=== PATIENT | male | born 1975 | race Caucasian/White ===

== ENCOUNTER 2018-01-15 00:56 | Emergency (ER) | payer SELFPAY ==
[~2018-01-15] VITALS: Ht 180.3 cm; Wt 115.7 kg
[~2018-01-15 00:56] MED LIST: CYCL10TA2 PO; HYDR-971 PO
--- NOTE | 2018-01-15 01:22 | PHYS DOC ---
Past Medical History Past Medical History: GERD, Hypertension Past Surgical History: Other Additional Past Surgical Histo: L5 back surgery Smoking: Quit Less Than 1 Year Alcohol Use: None Drug Use: None Adult General Chief Complaint Chief Complaint: CHEST PAIN HPI HPI Patient is a 42 year old MALE who presents with chest pain. This started approximately 10:00 tonight. No radiation. No nausea, no diaphoresis. Patient was recently, approximately a month ago, diagnosed with hypertension at [facility] and started on an unknown blood pressure medication. Patient noted that his blood pressure was elevated tonight. And when the pain did not go away after proximally 4 hours his talked him into coming to the emergency department. Reports that he feels like his heart is racing when he walks. There is a respirophasic component to the discomfort. Describes it as sharp. As he is laying in the ER bed he denies any pain currently.[] Review of Systems Review of Systems Constitutional: Denies fever or chills [] Eyes: Denies change in visual acuity, redness, or eye pain [] HENT: Denies nasal congestion or sore throat [] Respiratory: Denies cough or shortness of breath [] Cardiovascular: No additional information not addressed in HPI [] GI: Denies abdominal pain, nausea, vomiting, bloody stools or diarrhea [] : Denies dysuria or hematuria [] Musculoskeletal: Denies back pain or joint pain [] Integument: Denies rash or skin lesions [] Neurologic: Denies headache, focal weakness or sensory changes [] Endocrine: Denies polyuria or polydipsia [] All other systems were reviewed and found to be within normal limits, except as documented in this note. Current Medications Current Medications Current Medications Medications (Trade) Dose Ordered Sig/Jorge Start Time Stop Time Status Last Admin Dose Admin Aspirin (Children'S Aspirin) 324 mg 1X ONCE 01/15/18 01:30 01/15/18 01:31 DC 01/15/18 01:25 324 MG Ketorolac Tromethamine (Toradol 15mg Vial) 15 mg 1X ONCE 01/15/18 02:00 01/15/18 02:01 DC 01/15/18 01:53 15 MG Nitroglycerin (Nitrostat) 0.4 mg PRN Q5MIN PRN 01/15/18 01:15 01/15/18 02:01 0.4 MG Allergies Allergies Allergies Coded Allergies Type Severity Reaction Last Updated Verified No Known Drug Allergies 03/03/13 No Physical Exam Physical Exam Constitutional: Well developed, well nourished, no acute distress, non-toxic appearance. [] HENT: Normocephalic, atraumatic, bilateral external ears normal, oropharynx moist, no oral exudates, nose normal. [] Eyes: PERRLA, EOMI, conjunctiva normal, no discharge. [] Neck: Normal range of motion, no tenderness, supple, no stridor. [] Cardiovascular:Heart rate regular rhythm, no murmur [] Lungs & Thorax: Bilateral breath sounds clear to auscultation [] Abdomen: Bowel sounds normal, soft, no tenderness, no masses, no pulsatile masses. [] Skin: Warm, dry, no erythema, no rash. [] Back: No tenderness, no CVA tenderness. [] Extremities: No tenderness, no cyanosis, no clubbing, ROM intact, no edema. [] Neurologic: Alert and oriented X 3, normal motor function, normal sensory function, no focal deficits noted. [] Psychologic: Affect normal, judgement normal, mood normal. [] Current Patient Data Vital Signs Vital Signs Date Time Temp Pulse Resp B/P (MAP) Pulse Ox O2 Delivery O2 Flow Rate FiO2 01/15/18 02:06 59 16 114/70 (85) 99 Room Air 01/15/18 00:57 97.6 97.6 Lab Values Laboratory Tests Test 01/15/18 02:00 White Blood Count 14.5 x10^3/uL (4.0-11.0) H Red Blood Count 4.62 x10^6/uL (4.30-5.70) Hemoglobin 14.9 g/dL (13.0-17.5) Hematocrit 42.5 % (39.0-53.0) Mean Corpuscular Volume 92 fL (79-100) Mean Corpuscular Hemoglobin 32 pg (25-35) Mean Corpuscular Hemoglobin Concent 35 g/dL (31-37) Red Cell Distribution Width 13.4 % (11.5-14.5) Platelet Count 313 x10^3/uL (140-400) Neutrophils (%) (Auto) 61 % (31-73) Lymphocytes (%) (Auto) 31 % (24-48) Monocytes (%) (Auto) 6 % (0-9) Eosinophils (%) (Auto) 1 % (0-3) Basophils (%) (Auto) 1 % (0-3) Neutrophils # (Auto) 8.8 x10^3uL (1.8-7.7) H Lymphocytes # (Auto) 4.6 x10^3/uL (1.0-4.8) Monocytes # (Auto) 0.8 x10^3/uL (0.0-1.1) Eosinophils # (Auto) 0.1 x10^3/uL (0.0-0.7) Basophils # (Auto) 0.2 x10^3/uL (0.0-0.2) Prothrombin Time 12.9 SEC (11.7-14.0) Prothrombin Time INR 1.0 (0.8-1.1) D-Dimer (Maryann) 0.31 ug/mlFEU (0.00-0.50) Sodium Level 144 mmol/L (136-145) Potassium Level 3.5 mmol/L (3.5-5.1) Chloride Level 106 mmol/L (98-107) Carbon Dioxide Level 21 mmol/L (21-32) Anion Gap 17 (6-14) H Blood Urea Nitrogen 12 mg/dL (8-26) Creatinine 1.1 mg/dL (0.7-1.3) Estimated GFR (Cockcroft-Gault) 73.1 BUN/Creatinine Ratio 11 (6-20) Glucose Level 117 mg/dL (70-99) H Calcium Level 9.0 mg/dL (8.5-10.1) Magnesium Level 1.8 mg/dL (1.8-2.4) Total Bilirubin 0.4 mg/dL (0.2-1.0) Aspartate Amino Transferase (AST) 14 U/L (15-37) L Alanine Aminotransferase (ALT) 29 U/L (16-63) Alkaline Phosphatase 65 U/L (46-116) Troponin I Quantitative < 0.017 ng/mL (0.000-0.055) Total Protein 7.6 g/dL (6.4-8.2) Albumin 3.7 g/dL (3.4-5.0) Albumin/Globulin Ratio 0.9 (1.0-1.7) L Lipase 172 U/L (73-393) Laboratory Tests 01/15/18 02:00 Laboratory Tests 01/15/18 02:00 EKG EKG EKG shows a normal sinus rhythm, no ST elevation, normal axis, normal QTC[] Radiology/Procedures Radiology/Procedures Chest x-ray did not show any acute features[] Course & Med Decision Making Course & Med Decision Making Pertinent Labs and Imaging studies reviewed. (See chart for details) Medical decision making: Patient had a heart score of 1 due to his history of high blood pressure. Second set of cardiac enzymes are being obtained because his first set were negative. There is no evidence of end organ dysfunction given his significantly elevated blood pressure when he arrived. ED course: Patient arrived, was placed in bed, in tolerate exam well. His elevated blood pressure was noted and addressed with both nitroglycerin as well as pain medication. His blood pressure significantly improved including after the expected duration of nitroglycerin had worn off. Patient continues to be pain-free.[] Dragon Disclaimer Dragon Disclaimer This electronic medical record was generated, in whole or in part, using a voice recognition dictation system. Departure Departure Impression: Primary Impression: Chest pain Additional Impression: Hypertension Disposition: 01 HOME, SELF-CARE Condition: GOOD Referrals: NON,STAFF (PCP) Patient Instructions: Chest Pain (Nonspecific), Hypertension Additional Instructions: Take your blood pressure medicine as prescribed. Follow-up with your primary care physician within 2 days. Return to the ER if worsening pain, difficulty breathing, or any other concerns. Problem Qualifiers Primary Impression: Chest pain Chest pain type: unspecified Qualified Codes: R07.9 - Chest pain, unspecified Additional Impression: Hypertension Hypertension type: unspecified Qualified Codes: I10 - Essential (primary) hypertension JANE LONDONO DO Jan 15, 2018 01:22
[2018-01-15] MEDS: NITROGLYCERIN SUBLINGUAL 0.4 MG BOTTLE OF 25. SL PRN ×3 (01:24→02:01)
[2018-01-15] MEDS ORDERED: ASPIRIN CHEWABLE 81 MG TABLET. PO ONE (01:30)
--- NOTE | 2018-01-15 01:47 | EKG ---
[facility] [address] [place] [address] Test Date: 2018-01-15 Test Time: 01:04:25 Pat Name: SANJAY AUSTIN Department: Room: Gender: M [employer] Judge: : 1975 Requested By: JANE LONDONO Order Number: [id number] Reading MD: Measurements Intervals [place] Rate: 56 P: -25 CO: 176 QRS: 33 QRSD: 88 T: 18 QT: 414 QTc: 402 Interpretive Statements SINUS RHYTHM NO SPECIFIC ECG ABNORMALITIES RI6.01 No previous ECG available for comparison
[2018-01-15] MEDS ORDERED: KETOROLAC 15 MG/ML VIAL. IV ONE (02:00)
[2018-01-15 02:09] LABS: BASO # 0.2 x10^3/uL (0.0-0.2); BASO % 1 % (0-3); EOS # 0.1 x10^3/uL (0.0-0.7); EOS % 1 % (0-3); HEMATOCRIT 42.5 % (39.0-53.0); HEMOGLOBIN 14.9 g/dL (13.0-17.5); LYMPH # 4.6 x10^3/uL (1.0-4.8); LYMPH % 31 % (24-48); MEAN CORPUSCULAR HEMOGLOBIN 32 pg (25-35); MEAN CORPUSCULAR HGB CONC 35 g/dL (31-37); MEAN CORPUSCULAR VOLUME 92 fL (79-100); MONO # 0.8 x10^3/uL (0.0-1.1); MONO % 6 % (0-9); NEUT # 8.8 x10^3uL (1.8-7.7); NEUT % 61 % (31-73); PLATELET COUNT 313 x10^3/uL (140-400); RED BLOOD COUNT 4.62 x10^6/uL (4.30-5.70); RED CELL DISTRIBUTION WIDTH 13.4 % (11.5-14.5); WHITE BLOOD COUNT 14.5 x10^3/uL (4.0-11.0)
[2018-01-15 02:18] LABS: CREATININE 1.1 mg/dL (0.7-1.3); GFR 73.1; POTASSIUM 3.5 mmol/L (3.5-5.1)
[2018-01-15 02:19] LABS: PROTHROMBIN TIME PATIENT 12.9 SEC (11.7-14.0)
[2018-01-15 02:21] LABS: D-DIMER 0.31 ug/mlFEU (0.00-0.50)
[2018-01-15 02:29] LABS: ALBUMIN 3.7 g/dL (3.4-5.0); ALBUMIN/GLOBULIN RATIO 0.9 (1.0-1.7); MAGNESIUM 1.8 mg/dL (1.8-2.4); TOTAL BILIRUBIN 0.4 mg/dL (0.2-1.0); TOTAL PROTEIN 7.6 g/dL (6.4-8.2)
--- NOTE | 2018-01-15 04:42 | RAD ---
PORTABLE CHEST 1V Clinical Indication: chest pain Comparison: None. Findings: The cardiomediastinal silhouette is normal. Lungs are clear. There is no pneumothorax. No pleural effusion is appreciated. No acute bone abnormality. IMPRESSION: No acute cardiopulmonary process. Electronically signed by: Rohan Peterson MD (01/15/2018 4:39 AM) [facility]
[2018-01-15 06:06] VITALS: BP 185/98
== END 2018-01-15 06:29 | disposition home or self-care (01) ==
LOC: ER 00:56
DX: I10 Essential (primary) hypertension (principal); R07.89 Other chest pain; K21.9 Gastro-esophageal reflux disease without esophagitis; Z87.891 Personal history of nicotine dependence
CPT/HCPCS: 36415; 71045; 80053; 83690; 83735; 84484; 85025; 85379; 85610; 93005; 96374; 99285; J1885

== ENCOUNTER 2019-01-01 17:40 | Emergency (ER) | payer SELFPAY ==
[~2019-01-01] VITALS: Ht 172.7 cm; Wt 117.9 kg
[~2019-01-01 17:40] MED LIST changes: +HYDR-3164 PO; -HYDR-971 PO
[2019-01-01] MEDS ORDERED: IV NORMAL SALINE 1000ML BAG 1,000 ML IV ONE (18:15)
[2019-01-01 18:31] LABS: BASO # 0.1 x10^3/uL (0.0-0.2); BASO % 1 % (0-3); EOS # 0.1 x10^3/uL (0.0-0.7); EOS % 0 % (0-3); HEMATOCRIT 45.7 % (39.0-53.0); HEMOGLOBIN 15.5 g/dL (13.0-17.5); LYMPH % 20 % (24-48); MEAN CORPUSCULAR HEMOGLOBIN 32 pg (25-35); MEAN CORPUSCULAR HGB CONC 34 g/dL (31-37); MEAN CORPUSCULAR VOLUME 94 fL (79-100); MONO # 0.7 x10^3/uL (0.0-1.1); MONO % 5 % (0-9); NEUT # 10.9 x10^3/uL (1.8-7.7); NEUT % 74 % (31-73); PLATELET COUNT 293 x10^3/uL (140-400); RED BLOOD COUNT 4.89 x10^6/uL (4.30-5.70); RED CELL DISTRIBUTION WIDTH 13.3 % (11.5-14.5); WHITE BLOOD COUNT 14.7 x10^3/uL (4.0-11.0)
[2019-01-01 18:47] LABS: CALCIUM 8.3 mg/dL (8.5-10.1); CREATININE 1.3 mg/dL (0.7-1.3); POTASSIUM 3.8 mmol/L (3.5-5.1)
[2019-01-01 18:50] LABS: ACETAMIN < 2.0 mcg/ml (10-30); ETHANOL < 10 mg/dL (0-10); SALIC < 2.8 mg/dL (2.8-20.0)
[2019-01-01 18:51] LABS: ALBUMIN 3.8 g/dL (3.4-5.0); ALBUMIN/GLOBULIN RATIO 1.1 (1.0-1.7); MAGNESIUM 1.9 mg/dL (1.8-2.4); TOTAL BILIRUBIN 0.8 mg/dL (0.2-1.0); TOTAL PROTEIN 7.3 g/dL (6.4-8.2)
[2019-01-01 19:46] LABS: BILIRUBIN,URINE NEGATIVE (NEG); CLARITY,URINE CLEAR; COLOR,URINE YELLOW; NITRITE,URINE NEGATIVE (NEG); PROTEIN,URINE 30 mg/dL (NEG-TRACE); UROBILINOGEN,URINE 0.2 mg/dL (0.2 mg/dL)
[2019-01-01 19:52] LABS: AMORPHOUS SEDIMENT,UR PRESENT /HPF; BACTERIA,URINE 0 /HPF (0-FEW); HYALINE CASTS, URINE FEW /HPF; RBC,URINE 0 /HPF (0-2); WBC,URINE OCC /HPF (0-4)
[2019-01-01 19:54] LABS: BARBITURATES NEG (NEG); BENZODIAZEPINES POS (NEG); CANNABINOIDS POS (NEG); COCAINE NEG (NEG); METHADONE NEG (NEG); OPIATES POS (NEG); PHENCYCLIDINE NEG (NEG)
[2019-01-01 20:00] LABS: AMPHETAMINE/METHAMPHETAMINE NEG (NEG)
[2019-01-01 20:18] VITALS: BP 180/103
--- NOTE | 2019-01-01 20:18 | PHYS DOC ---
Past Medical History Past Medical History: Anxiety, GERD, Hypertension Additional Past Medical Histor: chronic back pain (MAUREEN LINDER APRN) Past Surgical History: Other Additional Past Surgical Histo: L5 back surgery (MAUREEN LINDER APRN) Alcohol Use: None Drug Use: None (MAUREEN LINDER APRN) Adult General Chief Complaint Chief Complaint: OVERDOSE HPI HPI Patient is a 43 year old male with history of anxiety, acid reflex, chronic back pain, who presents to the ED today to be evaluated for accidental overdose. Patient reports accidentally taking 2 tablets of 7.5 mg/325 of hydrocodone at 1600 for his chronic back pain and 2 tablets of 1 mg of Ativan at 1500. He states he usually takes 1 Xanax but he doesn't know what made him take 2. reports he found patient on the couch unresponsive laying on his face. EMS was called. Patient was noted to have O2 saturations at 30% and was snoring. Nasal trumpet was inserted to his right nasal cavity by EMS, he was given 1 mg of Narcan. He became responsive. Was brought to the ED. He is currently awake alert and oriented though sleepy he is able to answer questions. Patient denies any larson icidal or homicidal ideations (MAUREEN LINDER APRN) Review of Systems Review of Systems Constitutional: Denies fever or chills [] Eyes: Denies change in visual acuity, redness, or eye pain [] HENT: Denies nasal congestion or sore throat [] Respiratory: Denies cough or shortness of breath [] Cardiovascular: No additional information not addressed in HPI [] GI: Denies abdominal pain, nausea, vomiting, bloody stools or diarrhea [] : Denies dysuria or hematuria [] Musculoskeletal: Denies back pain or joint pain [] Integument: Denies rash or skin lesions [] Neurologic: Denies headache, focal weakness or sensory changes [] Endocrine: Reports unintentional drug overdose All other systems were reviewed and found to be within normal limits, except as documented in this note. (MAUREEN LINDER APRN) Current Medications Current Medications Current Medications Medications (Trade) Dose Ordered Sig/Jorge Start Time Stop Time Status Last Admin Dose Admin Sodium Chloride 1,000 ml @ 1,000 mls/hr 1X ONCE 01/01/19 18:15 01/01/19 19:14 DC 01/01/19 18:21 1,000 MLS/HR (WANDA ARELLANO DO) Allergies Allergies Allergies Coded Allergies Type Severity Reaction Last Updated Verified No Known Drug Allergies 03/03/13 No (WANDA ARELLANO DO) Physical Exam Physical Exam Constitutional: Well developed, well nourished, no acute distress, non-toxic appearance. [] HENT: Normocephalic, atraumatic, bilateral external ears normal, oropharynx moist, no oral exudates, nose normal. [] Eyes: PERRLA, EOMI, conjunctiva normal, no discharge. [] Neck: Normal range of motion, no tenderness, supple, no stridor. [] Cardiovascular:Heart rate regular rhythm, no murmur [] Lungs & Thorax: Bilateral breath sounds clear to auscultation [] Abdomen: Bowel sounds normal, soft, no tenderness, no masses, no pulsatile masses. [] Skin: Warm, dry, no erythema, no rash. [] Back: No tenderness, no CVA tenderness. [] Extremities: No tenderness, no cyanosis, no clubbing, ROM intact, no edema. [] Neurologic: Alert and oriented X 3, normal motor function, normal sensory function, no focal deficits noted. [] Psychologic: flat affect, appears lethargic but arouse able and able to answer questions (MAUREEN LINDER APRN) Current Patient Data Vital Signs Vital Signs Date Time Temp Pulse Resp B/P (MAP) Pulse Ox O2 Delivery O2 Flow Rate FiO2 01/01/19 20:18 118 20 180/103 (128) 96 Room Air 01/01/19 19:58 2.0 01/01/19 17:46 97.5 97.5 (WANDA ARELLANO DO) Lab Values Laboratory Tests Test 01/01/19 17:44 01/01/19 19:35 White Blood Count 14.7 x10^3/uL (4.0-11.0) H Red Blood Count 4.89 x10^6/uL (4.30-5.70) Hemoglobin 15.5 g/dL (13.0-17.5) Hematocrit 45.7 % (39.0-53.0) Mean Corpuscular Volume 94 fL (79-100) Mean Corpuscular Hemoglobin 32 pg (25-35) Mean Corpuscular Hemoglobin Concent 34 g/dL (31-37) Red Cell Distribution Width 13.3 % (11.5-14.5) Platelet Count 293 x10^3/uL (140-400) Neutrophils (%) (Auto) 74 % (31-73) H Lymphocytes (%) (Auto) 20 % (24-48) L Monocytes (%) (Auto) 5 % (0-9) Eosinophils (%) (Auto) 0 % (0-3) Basophils (%) (Auto) 1 % (0-3) Neutrophils # (Auto) 10.9 x10^3/uL (1.8-7.7) H Lymphocytes # (Auto) 3.0 x10^3/uL (1.0-4.8) Monocytes # (Auto) 0.7 x10^3/uL (0.0-1.1) Eosinophils # (Auto) 0.1 x10^3/uL (0.0-0.7) Basophils # (Auto) 0.1 x10^3/uL (0.0-0.2) Sodium Level 144 mmol/L (136-145) Potassium Level 3.8 mmol/L (3.5-5.1) Chloride Level 107 mmol/L (98-107) Carbon Dioxide Level 24 mmol/L (21-32) Anion Gap 13 (6-14) Blood Urea Nitrogen 10 mg/dL (8-26) Creatinine 1.3 mg/dL (0.7-1.3) Estimated GFR (Cockcroft-Gault) 60.0 BUN/Creatinine Ratio 8 (6-20) Glucose Level 203 mg/dL (70-99) H Calcium Level 8.3 mg/dL (8.5-10.1) L Magnesium Level 1.9 mg/dL (1.8-2.4) Total Bilirubin 0.8 mg/dL (0.2-1.0) Aspartate Amino Transferase (AST) 27 U/L (15-37) Alanine Aminotransferase (ALT) 35 U/L (16-63) Alkaline Phosphatase 67 U/L (46-116) Total Protein 7.3 g/dL (6.4-8.2) Albumin 3.8 g/dL (3.4-5.0) Albumin/Globulin Ratio 1.1 (1.0-1.7) Salicylates Level < 2.8 mg/dL (2.8-20.0) L Salicylate Last Dose Date Unknown Salicylate Last Dose Time Unknown Acetaminophen Level < 2.0 mcg/ml (10-30) L Acetaminophen Last Dose Date Unknown Acetaminophen Last Dose Time Unknown Ethyl Alcohol Level < 10 mg/dL (0-10) Urine Collection Type U cath Urine Color Yellow Urine Clarity Clear Urine pH 5.0 Urine Specific [place] 1.025 Urine Protein 30 mg/dL (NEG-TRACE) Urine Glucose (UA) Negative mg/dL (NEG) Urine Ketones (Stick) Negative mg/dL (NEG) Urine Blood Negative (NEG) Urine Nitrite Negative (NEG) Urine Bilirubin Negative (NEG) Urine Urobilinogen Dipstick 0.2 mg/dL (0.2 mg/dL) Urine Leukocyte Esterase Negative (NEG) Urine RBC 0 /HPF (0-2) Urine WBC Occ /HPF (0-4) Urine Amorphous Sediment Present /HPF Urine Bacteria 0 /HPF (0-FEW) Urine Hyaline Casts Few /HPF Urine Mucus Marked /LPF Urine Opiates Screen Pos (NEG) Urine Methadone Screen Neg (NEG) Urine Barbiturates Neg (NEG) Urine Phencyclidine Screen Neg (NEG) Urine Amphetamine/Methamphetamine Neg (NEG) Urine Benzodiazepines Screen Pos (NEG) Urine Cocaine Screen Neg (NEG) Urine Cannabinoids Screen Pos (NEG) Urine Ethyl Alcohol Neg (NEG) Laboratory Tests 01/01/19 17:44 Laboratory Tests 01/01/19 17:44 (WANDA ARELLANO DO) EKG EKG [] (MAUREEN LINDER APRN) Radiology/Procedures Radiology/Procedures [] (MAUREEN LINDER APRN) Course & Med Decision Making Course & Med Decision Making Pertinent Labs and Imaging studies reviewed. (See chart for details) This is a 43-year-old male patient being brought to the ED today by EMS for accidental overdose. He took 2 tablets of 7.5 mg/325 mg hydrocodone she takes every day for chronic back pain and 2 tablets of Xanax 1 mg he only takes . He typically only takes 1 mg of Xanax. He was given Narcan by EMS. He mg of xanax twice a day. He is sleepy on arrival to the ED though is able to wake up and talk. After a couple minutes in the ED he was more awake, we removed his nasal trumpet. Patient denies any suicidal or homicidal ideations. Drug screen noted for opiates, benzodiazepine, and marijuana Patient has spent an incredible amount of time with his family members arguing. We've had to ask some of them to leave. He was discharged to home. Encouraged him to monitor how he is taking his medications otherwise he can give them to a different family member who can control when he takes them. (MAUREEN LINDER APRN) Dragon Disclaimer Dragon Disclaimer This electronic medical record was generated, in whole or in part, using a voice recognition dictation system. (MAUREEN LINDER APRN) Departure Departure Impression: Primary Impression: Accidental overdose Disposition: HOME, SELF-CARE Condition: STABLE Referrals: NO PCP (PCP) Patient Instructions: Overdose, Accidental Additional Instructions: You were evaluated in the emergency room for accidental overdose. Please monitor how you take your medicines, you can consider giving a different family member your medicines and see if they can control/dispense them at the right time. Attending Signature Attending Signature I have reviewed the PA/AUTO WINDER's note and plan of care. I was available for consultation as needed during the patient's visit in the emergency department. I agree with the clinical impression, plan, and disposition. (WANDA ARELLANO DO) Problem Qualifiers Primary Impression: Accidental overdose Encounter type: initial encounter Qualified Codes: T50.901A - Poisoning by unspecified drugs, medicaments and biological substances, accidental (unintentional), initial encounter MAUREEN LINDER APRN Jan 01, 2019 20:18 WANDA ARELLANO DO Jan 02, 2019 05:30
== END 2019-01-01 20:26 | disposition home or self-care (01) ==
LOC: ER 17:40
DX: T40.2X1A Poisoning by other opioids, accidental (unintentional), initial encounter (principal); T42.4X1A Poisoning by benzodiazepines, accidental (unintentional), initial encounter; G89.29 Other chronic pain; K21.9 Gastro-esophageal reflux disease without esophagitis; I10 Essential (primary) hypertension; F41.9 Anxiety disorder, unspecified; Z98.890 Other specified postprocedural states
CPT/HCPCS: 36415; 80053; 80307; 80329; 81001; 83735; 85025; 99285; G0480; J7030